=== PATIENT | female | born 1990 ===

== ENCOUNTER 2020-11-15 18:26 | Emergency (ER) ==
[~2020-11-15] VITALS: Ht 177.8 cm; Wt 77.5 kg
--- NOTE | 2020-11-15 18:55 | REP ---
INDICATION: injury/pain, please include wrist COMPARISON: None. TECHNIQUE: Four views right hand. FINDINGS: At the carpal/metacarpal joints there is posterior dislocation of the 4th and 5th metacarpals. There may be a chip fracture at the base of the 4th metacarpal. There is an old healed fracture of the distal 5th metacarpal. IMPRESSION: Posterior dislocation of the 4th and 5th metacarpals at the carpal/metacarpal joints. There may be a chip fracture at the base of the 4th metacarpal. Old healed fracture distal 5th metacarpal. <Electronically signed by Cornel Franz > 11/15/20 [id number]
== END 2020-11-15 22:20 | disposition left against medical advice (07) ==
LOC: M ED 18:26
DX: Z53.21 Procedure and treatment not carried out due to patient leaving prior to being seen by health care provider (principal)